=== PATIENT | female | born 1955 ===

== ENCOUNTER 2021-07-25 07:45 | Inpatient (IN) | payer OTHER ==
[~2021-07-25] VITALS: Ht 162.6 cm; Wt 4.0 kg
[2021-07-25] MEDS ORDERED: LISINOPRIL2.5 MG PO (10:19)
[2021-07-25] MEDS ORDERED: ACID REDUCER20 M1 PO (10:20)
[2021-07-25] MEDS ORDERED: HUMU (10:21)
[2021-07-25] MEDS ORDERED: LANTUS (10:21)
[2021-07-25] MEDS ORDERED: ANORO ELLIPTA1 EACH IH (10:22)
[2021-07-25] MEDS ORDERED: SULINDAC150 MG PO (10:23)
[2021-07-25] MEDS ORDERED: [UNRECOGNIZED DRUG - OTHER] IH (10:23)
[2021-07-30] MEDS ORDERED: PROVENTIL HFA6.7 GM IH (07:53)
[2021-07-30] MEDS ORDERED: PERCOCET 5-3251 EACH PO (08:41)
[2021-07-30] MEDS ORDERED: CEFADROXIL500 MG PO (08:41)
== END 2021-07-30 10:30 | disposition home or self-care (01) | DRG 483 ==
LOC: EDSTATUS 07:45 → ADM 07:45 → SURH 07-29 07:00 → O/R 07-29 07:12 → SURH 07-29 07:45 → O/R 07-30 10:30
PROVIDERS: ADMIT Orthopaedic Surgery; ATTEND Orthopaedic Surgery
PROC: 0LS30ZZ Reposition Right Upper Arm Tendon, Open Approach (ICD-10-PCS; 2021-07-29)
PROC: 0RRJ00Z Replacement of Right Shoulder Joint with Reverse Ball and Socket Synthetic Substitute, Open Approach (ICD-10-PCS; principal; 2021-07-29 07:00)
DX: M19.011 Primary osteoarthritis, right shoulder (principal); M75.101 Unspecified rotator cuff tear or rupture of right shoulder, not specified as traumatic; I10 Essential (primary) hypertension; E11.9 Type 2 diabetes mellitus without complications; J44.9 Chronic obstructive pulmonary disease, unspecified; J45.909 Unspecified asthma, uncomplicated; Z79.4 Long term (current) use of insulin